=== PATIENT | female | born 1990 | race Caucasian/White ===

== ENCOUNTER 2016-08-19 20:02 | Emergency (ER) | payer OTHER ==
[~2016-08-19 20:02] MED LIST: BACTRIM DS TABL1 TAB PO; BACTROBAN22 GM; BENTYL20 MG PO; CIPRO500 MG PO; DARVOCET-N 1001 TAB PO; KEFLEX500 MG; MOTRIN600 MG PO; NO MEDICATIONS; NORCO 5/325 TAB1 TAB PO; VICODIN 5/500 T1 TAB PO; ZOFRAN ODT4 MG/UDTAB PO
[2016-08-19] MEDS ORDERED: AUGMENTIN 875-1 EAC2 PO (21:21)
== END 2016-08-19 22:03 ==
LOC: EDMED 20:02
PROC: 0HQLXZZ Repair Left Lower Leg Skin, External Approach (ICD-10-PCS; principal; 2016-08-19)
DX: S81.852A Open bite, left lower leg, initial encounter (principal); W54.0XXA Bitten by dog, initial encounter; Y92.019 Unspecified place in single-family (private) house as the place of occurrence of the external cause